=== PATIENT | female | born 1935 | race Caucasian/White ===

== ENCOUNTER 2016-04-13 10:27 | Outpatient (CLI) | payer OTHER ==
[~2016-04-13 10:27] MED LIST: ASPIRIN EC LOW81 MG PO; CHARCOCAPS260 MG PO; METFORMIN HCL500 MG PO; MULTIVITAMIN1 TAB PO; VITAMIN D-31000 UNIT PO; ZOLOFT50 MG PO
--- NOTE | 2016-04-13 16:50 | DIAGNOSTIC IMAGING REPORT ---
REFERRING PHYSICIAN/PROVIDER: HILDA Allen [employer]SULTING [employer] DES[employer] ENGINEER: David Stanley MD PROCEDURE: 2D echo, M-mode and complete color and flow Doppler interrogation TECHNICAL QUALITY: Technically difficult INDICATION: <OBX.5.1><OBX.5.1.1>DYSPNEA,FATIGUE </OBX.5.1.1><OBX.5.1. INTERPRETATIONS: CHAMBERS: LEFT ATRIUM: Normal left atrial size. LEFT VENTRICLE: Normal left ventricular size, wall thickness, and wall motion. Pseudonormal diastolic function. RIGHT ATRIUM: Normal right atrial size. RIGHT VENTRICLE: Right ventricular size was not measured, but visually appears normal in size. VALVES: All valves nonrheumatic unless otherwise indicated. AORTIC VALVE: Trileaflet aortic valve. Mild aortic regurgitation. Aortic sclerosis without stenosis. MITRAL VALVE: Mild mitral regurgitation. No mitral stenosis. TRICUSPID VALVE: Mild tricuspid regurgitation. PULMONIC VALVE: No pulmonic regurgitation. MISCELLANEOUS: No pericardial effusion. HEMODYNAMICS: IVC hemodynamics were not adequately assessed to estimate central venous pressure. IMPRESSION: 1. Normal left ventricular size and systolic function, EF visually estimated to be 65-70%. No wall motion abnormalities. 2. Pseudonormal pattern of diastolic function, consistent with grade II diastolic dysfunction. 3. Aortic sclerosis without stenosis. Mild aortic regurgitation, mild mitral regurgitation, mild tricuspid regurgitation. 4. Normal right ventricular size and systolic function. 5. Estimated pulmonary artery systolic pressure is 26 mmHg + right atrial pressure. 6. No pericardial effusion.
== END 2016-04-13 23:00 | disposition home or self-care (01) ==
LOC: US SRH 10:27
DX: I70.0 Atherosclerosis of aorta (principal)

== ENCOUNTER 2016-08-17 10:30 | Outpatient (CLI) | payer OTHER ==
--- NOTE | 2016-08-17 12:56 | DIAGNOSTIC IMAGING REPORT ---
PROCEDURE: MG UNILATERAL DIAG-LT W/CAD INDICATION: 6 MONTH FOLLOW UP TO CONFIRM STABILITY TECHNIQUE: CC, MLO and true-lateral digital views of left breast. In addition, spot compression CC and MLO views were obtained of the lower inner left breast (region of clinical concern). Finally, high-resolution left breast ultrasound was performed (18 mHz). COMPARISON: Compared to mammogram and ultrasound studies on 01/21/2016, and prior mammogram studies (06/28/2011, 03/03/2009). FINDINGS: MAMMOGRAM: Computer-aided detection applied. Mildly dense parenchymal pattern. The 6 mm mildly lobulated nodular density in the lower inner left breast remains stable. BREAST ULTRASOUND: Breast parenchyma is normal in the lower inner left breast. There is a 1.4 x 1 0.9 cm ovoid hypoechoic subcutaneous nodule in the upper inner left parasternal region which demonstrates through transmission, well- defined wall, and mild vascularity IMPRESSION: 1. Negative mammogram with a stable 6 mm nodular density in the lower inner left breast (without corresponding ultrasound abnormality). Findings are consistent with a normal intramammary lymph node. 2. There is palpable 1.4 x 0.9 cm hypoechoic nodule in the left upper parasternal subcutaneous tissues. While the overall appearance suggests a benign sebaceous cyst, there is increased vascularity, and as such, underlying neoplasm should also be considered (e.g., schwannoma, neuroma, abnormal lymph node). Excisional biopsy is recommended. 3. Findings discussed with the patient and called to BRITTNEY Allen. RESULT CODE: 4- Suspicious abnormality - biopsy should be considered. A. A negative report should not delay biopsy if a dominant or clinically suspicious mass is present. 10-15% of cancers are not identified by x-ray. B. A negative report may reinforce clinical impression. C. Adenosis and dense breasts may obscure an underlying neoplasm. D. False positive reports average 6-10%. E.. A yearly screening mammogram is recommended. A reminder letter will be scheduled.
--- NOTE | 2016-08-17 13:00 | DIAGNOSTIC IMAGING REPORT ---
PROCEDURE: US LTD BREAST ULTRASOUND - LT INDICATION: 6 MONTH FOLLOW UP TO CONFIRM STABILITY TECHNIQUE: CC, MLO and true-lateral digital views of left breast. In addition, spot compression CC and MLO views were obtained of the lower inner left breast (region of clinical concern). Finally, high-resolution left breast ultrasound was performed (18 mHz). COMPARISON: Compared to mammogram and ultrasound studies on 01/21/2016, and prior mammogram studies (06/28/2011, 03/03/2009). FINDINGS: MAMMOGRAM: Computer-aided detection applied. Mildly dense parenchymal pattern. The 6 mm mildly lobulated nodular dense in the lower inner left breast remains stable. BREAST ULTRASOUND: Breast parenchyma is normal in the lower inner left breast. There is a 1.4 x 0.9 cm ovoid hypoechoic subcutaneous nodule in the upper inner left parasternal region which demonstrates through transmission, well-defined wall, and mild vascularity. IMPRESSION: 1. Negative mammogram with stable 6 mm nodular density in the lower inner left breast (without corresponding ultrasound abnormality). Findings are consistent with a normal intramammary lymph node. 2. There is a palpable 1.4 x 0.9 cm hypoechoic nodule in the left upper parasternal subcutaneous tissues. While the overall appearance suggests a benign sebaceous cyst, there is increased vascularity, and as such, underlying neoplasm should also be considered (e.g., schwannoma, neuroma, abnormal lymph node). Excisional biopsy is recommended. 3. Findings discussed with the patient and called to BRITTNEY Allen. RESULT CODE: 4- Suspicious abnormality - biopsy should be considered. A. A negative report should not delay biopsy if a dominant or clinically suspicious mass is present. 10-15% of cancers are not identified by x-ray. B. A negative report may reinforce clinical impression. C. Adenosis and dense breasts may obscure an underlying neoplasm. D. False positive reports average 6-10%. E.. A yearly screening mammogram is recommended. A reminder letter will be scheduled.
== END 2016-08-17 23:00 | disposition home or self-care (01) ==
LOC: MAM SRH 10:30
DX: N63 Unspecified lump in breast (principal)